=== PATIENT | female | born 1965 | race Caucasian/White ===

== ENCOUNTER → 2020-02-07 | Outpatient (CLI) | payer BC ==
[~2020-02-07] MED LIST: B12 ACTIVE1000 MCG PO; CELECOXIB200 MG PO; CRESTOR10 MG PO; DEXILANT60 MG PO; DULOXETINE HCL60 MG PO; ELIQUIS 2.5 MG2.5 MG PO; ESTRADIOL1 EACH TD; MONTELUKAST SOD10 MG PO; PERCOCET 10-321 EACH PO; SYNTHROID112 MCG PO; TELMISARTAN40 MG PO; TRIAMTERENE-HC1 EAC4 PO; UCERIS9 MG PO; VITAMIN D3125 MCG PO
== END ==
LOC: WCC 10:00
PROC: 0JBL0ZZ Excision of Right Upper Leg Subcutaneous Tissue and Fascia, Open Approach (ICD-10-PCS; principal; 2020-02-07)
DX: T81.32XD Disruption of internal operation (surgical) wound, not elsewhere classified, subsequent encounter (principal); E66.01 Morbid (severe) obesity due to excess calories; I10 Essential (primary) hypertension; Z72.0 Tobacco use; Z79.899 Other long term (current) drug therapy

== ENCOUNTER → 2020-02-16 | Outpatient (CLI) | payer BC | LOC: CT 10:28 | DX: T81.32XD Disruption of internal operation (surgical) wound, not elsewhere classified, subsequent encounter (principal); R93.6 Abnormal findings on diagnostic imaging of limbs | CPT/HCPCS: 36415; 82565; Q9965 ==

== ENCOUNTER → 2020-02-21 | Outpatient (CLI) | payer BC | LOC: WCC 11:00 | DX: T81.32XD Disruption of internal operation (surgical) wound, not elsewhere classified, subsequent encounter (principal); E66.01 Morbid (severe) obesity due to excess calories; I10 Essential (primary) hypertension; Z72.0 Tobacco use | CPT/HCPCS: G0463 ==

== ENCOUNTER → 2020-02-29 | Outpatient (CLI) | payer BC | LOC: WCC 14:33 | DX: T81.32XD Disruption of internal operation (surgical) wound, not elsewhere classified, subsequent encounter (principal); E66.01 Morbid (severe) obesity due to excess calories; I10 Essential (primary) hypertension; Z72.0 Tobacco use | CPT/HCPCS: G0463 ==

== ENCOUNTER → 2020-03-07 | Outpatient (CLI) | payer BC | LOC: WCC 14:29 | DX: T81.32XD Disruption of internal operation (surgical) wound, not elsewhere classified, subsequent encounter (principal); E66.01 Morbid (severe) obesity due to excess calories; I10 Essential (primary) hypertension; Z72.0 Tobacco use | CPT/HCPCS: G0463 ==